=== PATIENT | female | born 1945 | race Caucasian/White ===

== ENCOUNTER 2017-03-02 02:39 | Inpatient (IN) | payer OTHER ==
[~2017-03-02] VITALS: Ht 152.4 cm; Wt 85.7 kg
[2017-03-02 02:45] VITALS: BP_SYST 170
[2017-03-02] MEDS ORDERED: KETOROLAC TROMETHAMINE 30 MG VIAL IVP ONE (03:00)
[2017-03-02] MEDS ORDERED: ONDANSETRON HCL 4 MG/2 ML VIAL IVP ONE (03:00)
[2017-03-02] MEDS ORDERED: NACL 0.9% 1,000 ML IV ONE (03:00)
[2017-03-02] MEDS ORDERED: OMEP20CA10 PO (03:06)
[2017-03-02] MEDS ORDERED: TRAM50TA92 PO (03:06)
[2017-03-02] MEDS ORDERED: ASPI81TA2 PO (03:07)
[2017-03-02] MEDS ORDERED: QUIN20TA PO (03:09)
[2017-03-02 03:34] LABS: BILIRUBIN,URINE NEGATIVE (NEGATIVE); BLOOD, URINE 2+ (NEGATIVE); CLARITY/URINE CLEAR (CLEAR); COLOR,URINE YELLOW (YELLOW); GLUCOSE,URINE NEGATIVE (NEGATIVE); KETONES,URINE NEGATIVE (NEGATIVE); LEUKOCYTE ESTERASE ,URINE NEGATIVE (NEGATIVE); NITRITE, URINE NEGATIVE (NEGATIVE); PROTEIN URINE 1+ (NEGATIVE); UROBILINOGEN,URINE 0.2 (0.2-1.0)
[2017-03-02 03:44] LABS: BACTERIA,URINE MODERATE /HPF (None Seen); WBC,URINE 0-3 /HPF (0-3)
[2017-03-02 03:45] LABS: CALCIUM OXALATE CRYSTALS,UR 0-10 /HPF (None Seen)
[2017-03-02 04:09] LABS: BASOPHILS # (AUTO) 0.2 K/uL (0.0-0.2); BASOPHILS % (AUTO) 2.4 % (0.0-2.0); EOSINOPHILS # (AUTO) 0.1 K/uL (0.0-0.4); HEMATOCRIT 33.6 % (36-48); HEMOGLOBIN 11.4 g/dL (12.0-16.0); LYMPHOCYTES # (AUTO) 2.2 K/uL (1.0-5.5); LYMPHOCYTES % (AUTO) 23.2 % (20.5-51.5); MEAN CORPUSCULAR HEMOGLOBIN 30 pg (27-31); MEAN CORPUSCULAR HGB CONC 34 % (32-36); MEAN CORPUSCULAR VOLUME 90 fL (79.0-98.0); MONOCYTES # (AUTO) 0.7 K/uL (0.0-1.0); MONOCYTES % (AUTO) 7.1 % (1.7-9.3); NEUTROPHILS # (AUTO) 6.5 K/uL (1.8-7.7); NEUTROPHILS % (AUTO) 66.3 % (40.0-70.0); PLATELET COUNT (AUTO) 336 K/uL (130-430); RED BLOOD CELL COUNT(AUTO) 3.75 MIL/uL (4.2-6.2); RED CELL DISTRIBUTION WIDTH 12.4 % (9.0-15.0); WHITE BLOOD COUNT (AUTO) 9.7 K/uL (4.8-10.8)
[2017-03-02 04:11] LABS: CALCIUM 9.4 mg/dL (8.4-11.0); CREATININE 0.95 mg/dL (0.55-1.30)
[2017-03-02 04:16] LABS: ALBUMIN 3.4 g/dL (3.4-4.8); TOTAL BILIRUBIN 0.7 mg/dL (0.0-1.0); TOTAL PROTEIN, SERUM 7.5 g/dL (6.4-8.3)
[2017-03-02] MEDS ORDERED: fentaNYL CITRATE/PF 100 MCG/2 ML AMP IVP ONE (04:45)
[2017-03-02 07:54] VITALS: BP_SYST 160
[2017-03-02 08:43] VITALS: BP_SYST 160
[2017-03-02] MEDS ORDERED: KETOROLAC TROMETHAMINE 30 MG VIAL IVP PRN (10:15)
[2017-03-02] MEDS ORDERED: KETOROLAC TROMETHAMINE 30 MG VIAL ONE (10:21)
[2017-03-02] MEDS: cefTRIAXone 1 GM IVPB PREMIX 50 ML IV SCH (10:35)
[2017-03-02] MEDS ORDERED: TAMSULOSIN HCL 0.4 MG CAP PO ONE (13:00)
[2017-03-02] MEDS: ONDANSETRON HCL 4 MG/2 ML VIAL IVP PRN ×2 (13:12→23:24)
[2017-03-02] MEDS ORDERED: MORPHINE 2 MG/ML INJ. SYRINGE IVP PRN (14:00)
[2017-03-02] MEDS ORDERED: QUINAPRIL HCL 10 MG TABLET PO SCH (14:00)
[2017-03-02] MEDS ORDERED: ASPIRIN 81 MG TAB.CHEW PO ONE (14:00)
[2017-03-02 14:10] VITALS: BP_SYST 148
[2017-03-02] MEDS ORDERED: OMEPRAZOLE 20 MG CAPSULE.DR (PriLOSEC) PO ONE (14:15)
[2017-03-02] MEDS ORDERED: LISINOPRIL 20 MG TABLET PO ONE (14:15)
[2017-03-02 17:09] VITALS: BP_SYST 115
[2017-03-02] MEDS: KETOROLAC TROMETHAMINE 15 MG VIAL IVP PRN ×2 (18:50→23:22)
[2017-03-02 20:25] VITALS: BP_SYST 132
[2017-03-03 08:00] VITALS: BP_SYST 152
[2017-03-03] MEDS: ONDANSETRON HCL 4 MG/2 ML VIAL IVP PRN ×2 (08:58→20:09)
[2017-03-03] MEDS: OMEPRAZOLE 20 MG CAPSULE.DR (PriLOSEC) PO SCH (08:58)
[2017-03-03] MEDS: ASPIRIN 81 MG TAB.CHEW PO SCH (08:58)
[2017-03-03] MEDS: LISINOPRIL 20 MG TABLET PO SCH (09:05)
[2017-03-03] MEDS: TAMSULOSIN HCL 0.4 MG CAP PO SCH (09:05)
[2017-03-03] MEDS: cefTRIAXone 1 GM IVPB PREMIX 50 ML IV SCH (09:07)
[2017-03-03] MEDS: KETOROLAC TROMETHAMINE 15 MG VIAL IVP PRN ×2 (11:29→20:10)
[2017-03-03 13:24] VITALS: BP_SYST 160
[2017-03-03 18:30] VITALS: BP_SYST 135
[2017-03-03 20:00] VITALS: BP_SYST 151
[2017-03-03 22:46] LABS: PROTHROMBIN TIME 11.2 SECS (9.5-12.5)
[2017-03-04] VITALS: BP_SYST 145
[2017-03-04] MEDS: ONDANSETRON HCL 4 MG/2 ML VIAL IVP PRN (03:16)
[2017-03-04 04:40] VITALS: BP_SYST 157
[2017-03-04] MEDS: cefTRIAXone 1 GM IVPB PREMIX 50 ML IV SCH (09:47)
[2017-03-04] MEDS ORDERED: fentaNYL CITRATE 250 MCG/5 ML AMP IV ONE (10:25)
[2017-03-04] MEDS ORDERED: DEXAMETHASONE SOD PHOSPHATE 4 MG/ML VIAL IVP ONE (10:25)
[2017-03-04] MEDS ORDERED: MIDAZOLAM HCL 5 MG/5 ML VIAL IVP ONE (10:25)
[2017-03-04] MEDS ORDERED: ROCURONIUM BROMIDE 10 MG/ML (ZEMURON) IV ONE (10:25)
[2017-03-04] MEDS ORDERED: PROPOFOL 200MG/ 20ML VIAL (DIPRIVAN) IV ONE (10:25)
[2017-03-04] MEDS ORDERED: NS IRRIG SOLN 5000 ML IR ONE (10:25)
[2017-03-04] MEDS ORDERED: ONDANSETRON HCL 4 MG/2 ML VIAL IVP ONE (10:25)
[2017-03-04] MEDS ORDERED: KETOROLAC TROMETHAMINE 30 MG VIAL IVP ONE (10:25)
[2017-03-04] MEDS ORDERED: SEVOFLURANE 15 MIN GAS INH ONE (10:25)
[2017-03-04] MEDS ORDERED: LR 1,000 ML IV.SOLN IV ONE (10:25)
[2017-03-04] MEDS ORDERED: SUCCINYLCHOLINE CHLORIDE 20 MG/ML(QUELICIN) IVP ONE (10:25)
[2017-03-04] MEDS ORDERED: IOHEXOL 50 ML IV ONE (10:52)
[2017-03-04 11:20] VITALS: BP_SYST 157
[2017-03-04] MEDS ORDERED: LR 1,000 ML IV SCH (11:26)
[2017-03-04] MEDS ORDERED: HYDROmorphone 2 MG/ML VIAL IVP PRN ×2 (11:30)
[2017-03-04] MEDS ORDERED: MEPERIDINE HCL/PF 25 MG/ML DISP.SYRIN IVP PRN (11:30)
[2017-03-04] MEDS ORDERED: HYDROmorphone 1 MG INJ. 1 MG/ML AMPUL IVP PRN (11:30)
[2017-03-04 12:01] VITALS: BP_SYST 148
[2017-03-04] MEDS: TAMSULOSIN HCL 0.4 MG CAP PO SCH (13:56)
[2017-03-04] MEDS: OMEPRAZOLE 20 MG CAPSULE.DR (PriLOSEC) PO SCH (13:56)
[2017-03-04] MEDS: ASPIRIN 81 MG TAB.CHEW PO SCH (13:56)
[2017-03-04] MEDS: LISINOPRIL 20 MG TABLET PO SCH (13:56)
[2017-03-04 16:24] VITALS: BP_SYST 140
[2017-03-04 20:00] VITALS: BP_SYST 154
[2017-03-05 00:29] VITALS: BP_SYST 150
[2017-03-05 04:00] VITALS: BP_SYST 148
[2017-03-05] MEDS: OMEPRAZOLE 20 MG CAPSULE.DR (PriLOSEC) PO SCH (08:49)
[2017-03-05] MEDS: TAMSULOSIN HCL 0.4 MG CAP PO SCH (08:49)
[2017-03-05] MEDS: ASPIRIN 81 MG TAB.CHEW PO SCH (08:49)
[2017-03-05] MEDS: cefTRIAXone 1 GM IVPB PREMIX 50 ML IV SCH (08:53)
[2017-03-05] MEDS: LISINOPRIL 20 MG TABLET PO SCH (08:53)
[2017-03-05 13:10] VITALS: BP_SYST 123
[2017-03-05 17:51] VITALS: BP_SYST 129
[2017-03-05 21:16] VITALS: BP_SYST 141
[2017-03-05] MEDS ORDERED: IBUP-1480 PO (21:27)
== END 2017-03-05 22:30 | disposition home or self-care (01) | DRG 694 ==
LOC: SED 02:39 → SMU 06:20
PROVIDERS: ADMIT Family Medicine; ATTEND Family Medicine
PROC: BT1F1ZZ Fluoroscopy of Left Kidney, Ureter and Bladder using Low Osmolar Contrast (ICD-10-PCS; 2017-03-04)
PROC: 0T778DZ Dilation of Left Ureter with Intraluminal Device, Via Natural or Artificial Opening Endoscopic (ICD-10-PCS; principal; 2017-03-04 10:30)
DX: N13.2 Hydronephrosis with renal and ureteral calculous obstruction (principal); I10 Essential (primary) hypertension; K21.9 Gastro-esophageal reflux disease without esophagitis; N81.10 Cystocele, unspecified; Z90.49 Acquired absence of other specified parts of digestive tract; Z90.710 Acquired absence of both cervix and uterus; Z79.82 Long term (current) use of aspirin; Z79.899 Other long term (current) drug therapy
CPT/HCPCS: 36415; 71010; 76000; 80053; 81000-TC; 85025; 85610-TC; 85730-TC; 86886; 86900; 86901; 87081; 87086; 93005; 96374; 96375; 99285; J0330; J0696; J1100; J1885; J2250; J2270; J2405; J2704; J3010; J7030; J7050; J7120; Q9967